=== PATIENT | female | born 1985 | race Caucasian/White ===

== ENCOUNTER 2018-05-20 07:15 | Emergency (ER) | payer OTHER ==
[~2018-05-20] VITALS: Ht 154.9 cm; Wt 79.4 kg
[2018-05-20 07:40] VITALS: BP 122/56
== END 2018-05-20 08:34 | disposition home or self-care (01) ==
LOC: ER 07:15
DX: J20.9 Acute bronchitis, unspecified (principal)
CPT/HCPCS: 71046